=== PATIENT | female | born 1975 | race Caucasian/White ===

== ENCOUNTER 2018-12-20 12:41 | Emergency (ER) | payer OTHER ==
[~2018-12-20] VITALS: Ht 172.7 cm; Wt 102.0 kg
[2018-12-20 13:13] LABS: BASOPHILS # (AUTO) 0.05 x10^3/uL (0-0.1); BASOPHILS % (AUTO) 1 % (0-1); EOSINOPHILS # (AUTO) 0.16 x10^3/uL (0-0.4); EOSINOPHILS % (AUTO) 2 % (1-7); LYMPHOCYTES # (AUTO) 2.57 x10^3/uL (1-3.4); LYMPHOCYTES % (AUTO) 33 % (22-44); MD NO; MEAN CORPUSCULAR HEMOGLOBIN 29.9 pg (27.0-34.8); MEAN CORPUSCULAR HGB CONC 34.4 g/dL (32.4-35.8); MEAN CORPUSCULAR VOLUME 86.9 fL (80-100); MEAN PLATELET VOLUME 8.3 fL (7.4-10.4); MONOCYTES % (AUTO) 8 % (2-9); NEUTROPHILS # (AUTO) 4.33 x10^3/uL (1.8-6.8); NEUTROPHILS % (AUTO) 56 % (42-75); PLATELET COUNT 240 x10^3/uL (130-400); RED CELL DISTRIBUTION WIDTH 12.5 % (9.6-15.2)
[2018-12-20] MEDS ORDERED: OMNIPAQUE 350 MG/ML, 100ML BOTTLE ONE (13:19)
[2018-12-20 13:24] LABS: INTERNATIONAL NORMALIZED RATIO 1.1 (0.93-1.1); PROTHROMBIN TIME 11.6 Seconds (9.6-11.5)
[2018-12-20] MEDS ORDERED: FENTANYL PF 100 MCG/2ML ONE (13:39)
[2018-12-20] MEDS ORDERED: DULO30CA2 PO (14:03)
[2018-12-20] MEDS ORDERED: WARF-36 PO (14:03)
[2018-12-20] MEDS ORDERED: TOPI25TA8 PO (14:03)
[2018-12-20] MEDS ORDERED: TRAZ-137 PO (14:03)
[2018-12-20] MEDS ORDERED: ATOR-2 PO (14:03)
[2018-12-20] MEDS ORDERED: OXCA300T19 PO (14:03)
[2018-12-20] MEDS ORDERED: BUTA-177 PO (14:03)
[2018-12-20] MEDS ORDERED: VENL150T PO (14:03)
--- NOTE | 2018-12-20 14:04 | NUR ---
SOME DECREASE IN PAIN OF HEADACHE WITH IV FENTYNL
[2018-12-20] MEDS ORDERED: FENTANYL PF 100 MCG/2ML IVPush STA (14:12)
--- NOTE | 2018-12-20 15:18 | NUR ---
RECEIVED BEDSIDE REPORT FROM ABIHNAV LOPEZ. ASSUMING PT CARE AT THIS TIME.
[2018-12-20 15:25] VITALS: BP 107/69
--- NOTE | 2018-12-20 15:26 | NUR ---
PT RESTING ON GURNEY. NO ACUTE DISTRESS NOTED. NO NEEDS REQUESTED AT THIS TIME. PT STILL HAS BAUMANN. PT STATES NEURO SX HAS TALKED TO EDMD. VSS
--- NOTE | 2018-12-20 15:29 | NUR ---
PT AMBULATORY WITH STEADY GAIT TO BATHROOM.
--- NOTE | 2018-12-20 16:14 | NUR ---
Patient/Caregiver given discharge instructions and they have confirmed that they understand the instructions. Patient ambulatory with steady gait. PT LEFT WITH ALL PERSONAL BELONGINGS.
== END 2018-12-20 16:17 | disposition home or self-care (01) ==
LOC: ED 13:17
DX: R51 Headache (principal); R11.10 Vomiting, unspecified
CPT/HCPCS: 36415; 70450; 70496; 80047; 85025; 85610; 85730; 93005; 96374; 99284; J3010; Q9967